=== PATIENT | male | born 1985 | race Caucasian/White ===

== ENCOUNTER → 2017-02-06 | Outpatient (CLI) | payer OTHER ==
[~2017-02-06] MED LIST: [UNRECOGNIZED DRUG - OTHER]
[2017-02-06 12:44] LABS: ALT/SGPT 64 U/L (12-78); AST/SGOT 27 U/L (15-37); BLOOD UREA NITROGEN 16 mg/dl (7-18); BUN/CREATININE RATIO 13.4 (10-20); CALCIUM 9.1 mg/dl (8.5-10.1); CARBON DIOXIDE 28 mmol/L (21-32); CHLORIDE 104 mmol/L (98-107); GLUCOSE 85 mg/dl (70-99); POTASSIUM 3.9 mmol/L (3.5-5.1); SODIUM 140 mmol/L (136-145)
[2017-02-06 12:47] LABS: ALB/GLOB RATIO 1.3 (0.9-2); ALKALINE PHOSPHATASE 67 U/L (45-117); CHOLESTEROL 154 mg/dl (0-200); CHOLESTEROL/HDL RATIO 4.4; HDL CHOLESTEROL 35 mg/dl; LDL CHOLESTEROL CALCULATED 87 mg/dl; TRIGLYCERIDES 161 mg/dl (0-150); VERY LOW DENSITY LIPOPROT CALC 32 mg/dl
== END | disposition home or self-care (01) ==
LOC: C.LABPBG 08:08
PROVIDERS: ATTEND Family Medicine
DX: I10 Essential (primary) hypertension (principal); E78.1 Pure hyperglyceridemia

== ENCOUNTER → 2017-12-23 | Outpatient (CLI) | payer OTHER ==
[2017-12-23 13:16] LABS: BLOOD UREA NITROGEN 17 mg/dl (7-18); CALCIUM 9.4 mg/dl (8.5-10.1); CARBON DIOXIDE 30 mmol/L (21-32); CREATININE 1.24 mg/dl (0.60-1.40); GLUCOSE 89 mg/dl (70-99); POTASSIUM 3.9 mmol/L (3.5-5.1); SODIUM 137 mmol/L (136-145)
== END | disposition home or self-care (01) ==
LOC: C.LABPBG 09:17
PROVIDERS: ATTEND Family Medicine
DX: I10 Essential (primary) hypertension (principal)